=== PATIENT | female | born 1960 | race Caucasian/White ===

== ENCOUNTER 2017-12-07 06:04 | Inpatient (IN) | payer BC ==
[~2017-12-07] VITALS: Ht 162.6 cm; Wt 73.1 kg
[~2017-12-07 06:04] MED LIST: SIMV-8 PO
[2017-12-07] MEDS ORDERED: TRANEXAMIC ACID 1,000 mg/10ml INJ VIAL ONE (06:43)
[2017-12-07] MEDS ORDERED: MORPHINE SULF(PF) 0.5MG/ML 10ML VIAL ONE ×2 (06:44→07:39)
[2017-12-07] MEDS ORDERED: BUPIVACAINE W/ EPINEPH 0.25% INJ 50ML MDV ONE (06:44)
[2017-12-07] MEDS ORDERED: VANCOMYCIN HCL 1000 MG VL ONE (06:47)
[2017-12-07] MEDS ORDERED: KETOROLAC TROMETH 30 MG/ML 1ML VIAL ONE (06:47)
[2017-12-07] MEDS ORDERED: ACETAMINOPHEN IV 1000 MG/100ML (10MG/ML) IV ONE (07:00)
[2017-12-07] MEDS ORDERED: CELECOXIB 100 MG CAP PO ONE (07:00)
[2017-12-07] MEDS ORDERED: PREGABALIN CAPSULE 75 MG CAP PO ONE (07:00)
[2017-12-07] MEDS ORDERED: TETRACAINE 1% INJ 2 ML VIAL IJ ONE (07:35)
[2017-12-07] MEDS ORDERED: fentaNYL CITRATE 100 MCG/2 ML VL ONE (07:39)
[2017-12-07] MEDS ORDERED: MIDAZOLAM HCL 1MG/1ML-2 ML VIAL ONE ×2 (07:40→07:41)
[2017-12-07] MEDS ORDERED: DEXAMETHASONE SOD PHOS 10MG/1ML VIAL INJ ONE (07:40)
[2017-12-07] MEDS ORDERED: PROPOFOL 10 MG/ML 20 ML IV ONE (07:40)
[2017-12-07] MEDS ORDERED: GENTAMICIN SULF 80 MG/2 ML VIAL ONE (07:44)
[2017-12-07] MEDS ORDERED: ceFAZolin 1GM/50ML 100 ML IV ONE (07:44)
[2017-12-07] MEDS ORDERED: ePHEDrine SULFATE 50 MG/ML AMP IV PRN (08:30)
[2017-12-07] MEDS ORDERED: DEXAMETHASONE SOD PHOS 10MG/1ML VIAL INJ IV PRN (08:30)
[2017-12-07] MEDS ORDERED: HYDROmorphone HCL 2 MG/ML VL IV PRN ×2 (08:30→11:00)
[2017-12-07] MEDS ORDERED: LABETALOL HCL 5 MG/ML 4ML SYRINGE IV PRN (08:30)
[2017-12-07] MEDS ORDERED: diphenhdrAMINE HCL 50 MG/1 ML VL IV PRN (08:30)
[2017-12-07] MEDS ORDERED: NALBUPHINE HCL 10 MG/1ml INJECTION SUBCUT ONE (08:30)
[2017-12-07] MEDS ORDERED: NALOXONE HCL 0.4 MG/ML VIAL IV PRN (08:30)
[2017-12-07] MEDS ORDERED: ONDANSETRON HCL 4 MG/2 ML VIAL IV PRN (08:30)
[2017-12-07] MEDS ORDERED: PHENYLEPHRINE HCL 10 MG/ML VL ONE (09:30)
[2017-12-07] MEDS ORDERED: HYDROcodone-ACET 7.5/325MG TAB PO PRN (11:00)
[2017-12-07] MEDS ORDERED: traMADol HCL 50 MG TAB PO PRN (11:00)
[2017-12-07 11:44] LABS: Basophils # (auto) 0 uL; Basophils % (auto) 0.3 % (0.0-2.0); Eosinophils # (auto) 0.2 uL; Eosinophils % (auto) 1.5 % (0.0-7.0); Hematocrit 35.7 % (36.0-46.0); Lymphocytes # (auto) 1.4 uL; Lymphocytes % (auto) 13.2 % (10.0-50.0); Mean Corpuscular Hemoglobin 31.7 pg (28.0-32.0); Mean Corpuscular Hgb Conc. 33.7 g/dL (32.0-36.0); Mean Corpuscular Volume 94.1 fL (80.0-100.0); Monocytes # (auto) 0.3 uL; Monocytes % (auto) 2.4 % (0.0-12.0); Neutrophils # (auto) 8.7 uL; Neutrophils % (auto) 82.6 % (37.0-80.0); Platelet Count (auto) 240 10^3/uL (140-450); Red Blood Cells 3.79 10^6/uL (4.0-5.20); Red Cell Distribution Width 13.4 % (11.8-14.3); White Blood Cell 10.5 10^3/uL (4.4-10.8)
[2017-12-07 12:11] LABS: BUN/Creatinine Ratio 18.3; Calcium 8.4 mg/dL (8.5-10.1)
[2017-12-07 13:39] VITALS: BP 105/55
[2017-12-07] MEDS: LACTATED RINGER'S 1,000 ML IV SCH (15:33)
[2017-12-07] MEDS: ceFAZolin 1GM/50ML 50 ML IV SCH (16:42)
[2017-12-07 16:44] VITALS: BP 111/63
[2017-12-07 20:00] VITALS: BP 110/68
[2017-12-07 21:49] VITALS: BP 119/65
[2017-12-07] MEDS: PRAVASTATIN SODIUM 20 MG TAB PO SCH (21:54)
[2017-12-07] MEDS: oxyCODONE ER 10 MG TAB PO SCH (21:54)
[2017-12-08] MEDS: ceFAZolin 1GM/50ML 50 ML IV SCH ×2 (00:51→09:00)
[2017-12-08] MEDS: LACTATED RINGER'S 1,000 ML IV SCH ×2 (04:49→13:40)
[2017-12-08 05:17] VITALS: BP 116/66
[2017-12-08 05:31] LABS: Basophils # (auto) 0 uL; Basophils % (auto) 0.1 % (0.0-2.0); Eosinophils # (auto) 0 uL; Hematocrit 29.6 % (36.0-46.0); Hemoglobin 9.9 g/dL (12.2-16.2); Lymphocytes # (auto) 0.9 uL; Lymphocytes % (auto) 6.8 % (10.0-50.0); Mean Corpuscular Hemoglobin 31.6 pg (28.0-32.0); Mean Corpuscular Hgb Conc. 33.4 g/dL (32.0-36.0); Mean Corpuscular Volume 94.5 fL (80.0-100.0); Monocytes # (auto) 0.8 uL; Neutrophils # (auto) 11.1 uL; Neutrophils % (auto) 87.1 % (37.0-80.0); Platelet Count (auto) 174 10^3/uL (140-450); Red Blood Cells 3.14 10^6/uL (4.0-5.20); Red Cell Distribution Width 13.4 % (11.8-14.3); White Blood Cell 12.7 10^3/uL (4.4-10.8)
[2017-12-08 06:00] LABS: BUN/Creatinine Ratio 19.1; Calcium 8.2 mg/dL (8.5-10.1); Potassium 4.3 mmol/L (3.5-5.1)
[2017-12-08 08:19] VITALS: BP 125/76
[2017-12-08] MEDS: oxyCODONE ER 10 MG TAB PO SCH ×2 (09:19→22:00)
[2017-12-08] MEDS: ENOXAPARIN SOD 40 MG/0.4 ML SYRINGE SC SCH (09:20)
[2017-12-08] MEDS ORDERED: PATIENTS OWN MEDICATION (Simvastatin 20 MG) PO SCH (10:00)
[2017-12-08 12:30] VITALS: BP 124/68
[2017-12-08] MEDS: KETOROLAC TROMETH 30 MG/ML 1ML VIAL IV PRN ×2 (15:12→23:56)
[2017-12-08 16:38] VITALS: BP 138/77
[2017-12-08 22:00] VITALS: BP 136/70
[2017-12-08] MEDS: PRAVASTATIN SODIUM 20 MG TAB PO SCH (22:01)
[2017-12-09] MEDS: LACTATED RINGER'S 1,000 ML IV SCH (02:37)
[2017-12-09 05:00] VITALS: BP 122/66
[2017-12-09 06:18] LABS: Basophils # (auto) 0 uL; Basophils % (auto) 0.4 % (0.0-2.0); Eosinophils # (auto) 0 uL; Eosinophils % (auto) 0.8 % (0.0-7.0); Hematocrit 26.2 % (36.0-46.0); Hemoglobin 8.9 g/dL (12.2-16.2); Lymphocytes % (auto) 22.3 % (10.0-50.0); Mean Corpuscular Hemoglobin 32.2 pg (28.0-32.0); Mean Corpuscular Volume 94.9 fL (80.0-100.0); Monocytes # (auto) 0.4 uL; Monocytes % (auto) 8.9 % (0.0-12.0); Neutrophils # (auto) 3.1 uL; Neutrophils % (auto) 67.6 % (37.0-80.0); Platelet Count (auto) 145 10^3/uL (140-450); Red Blood Cells 2.76 10^6/uL (4.0-5.20); Red Cell Distribution Width 13.3 % (11.8-14.3); White Blood Cell 4.5 10^3/uL (4.4-10.8)
[2017-12-09] MEDS ORDERED: HYDROcodone-ACET 7.5/325MG TAB PO PRN (07:15)
[2017-12-09 08:57] VITALS: BP 117/71
[2017-12-09] MEDS: ENOXAPARIN SOD 40 MG/0.4 ML SYRINGE SC SCH (09:53)
[2017-12-09] MEDS: oxyCODONE ER 10 MG TAB PO SCH (09:53)
[2017-12-09 12:27] VITALS: BP 133/81
[2017-12-09] MEDS ORDERED: ACETAMINOPHEN 325 MG TAB PO PRN (13:00)
[2017-12-09 15:18] VITALS: BP 133/81
[2017-12-09 17:10] VITALS: BP 110/62
== END 2017-12-09 16:47 | disposition home health service (06) | DRG 470 ==
LOC: SUR 06:04 → EAST 06:05
PROVIDERS: ADMIT Orthopaedic Surgery Adult Reconstructive Orthopaedic Surgery; ATTEND Orthopaedic Surgery Adult Reconstructive Orthopaedic Surgery
PROC: 0SR906A Replacement of Right Hip Joint with Oxidized Zirconium on Polyethylene Synthetic Substitute, Uncemented, Open Approach (ICD-10-PCS; principal; 2017-12-07 07:45)
DX: M16.11 Unilateral primary osteoarthritis, right hip (principal); E78.5 Hyperlipidemia, unspecified; F17.210 Nicotine dependence, cigarettes, uncomplicated; Z83.3 Family history of diabetes mellitus; Z88.1 Allergy status to other antibiotic agents; Z90.710 Acquired absence of both cervix and uterus; Z90.49 Acquired absence of other specified parts of digestive tract
CPT/HCPCS: 36415; 72170; 73501; 76000; 80048; 85025; 86850; 86900; 86901; 97116; 97530; J0131; J0690; J1100; J1885; J2250; J2704